=== PATIENT | female | born 1980 | race Caucasian/White ===

== ENCOUNTER 2016-10-14 14:30 | Emergency (ER) | payer MEDICARE ==
[2016-10-14] MEDS ORDERED: MOTRIN PO ONE (18:19)
--- NOTE | 2016-10-14 18:21 | Emergency Department Report ---
HPI - General Chief Complaint: Back Pain/Injury Time Seen by Provider: 10/14/16 18:04 - HPI HPI: 36-year-old female past medical history anxiety depression and history of pneumonia presents with complaint of one day of left sided costal margin/left- sided flank pain. Patient denies any fever or chills denies any productive cough denies any chest pain substernal or anterior no palpitations denies any shortness of breath, chest pain somewhat pleuritic in nature. Patient is not on any form of control history of tubal ligation ED Past Medical Hx - Past Medical History Hx Hypertension: Yes Hx Heart Attack/AMI: No Hx Congestive Heart Failure: No Hx Diabetes: No Hx Deep Vein Thrombosis: No Hx Pulmonary Embolism: No Hx Liver Disease: No Hx Renal Disease: No Hx Sickle Cell Disease: No Hx Headaches / Migraines: Yes (migraines) Hx Seizures: Yes (PIH) Hx Kidney Stones: No Hx Psychiatric Treatment: Yes (PTSD,ANXIETY, DEPRESSION) Hx Asthma: No (seasonal allergy) Hx COPD: No Hx Tuberculosis: No Hx Dementia: No Hx HIV: No Additional medical history: Preeclampsia - Surgical History Hx Coronary Stent: No Hx Pacemaker: No Hx Internal Defibrillator: No Additional Surgical History: TUBAL LIGATION - Social History Smoking Status: Never Smoker Substance Use Type: None - Medications Home Medications: Home Medications Medication Instructions Recorded Confirmed Last Taken Type Amlodipine Besylate [Norvasc] 2.5 mg PO DAILY 30 Days 10/19/14 04/18/16 07:31 Rx Aspirin [Aspirin TAB] 325 mg PO QDAY 04/13/16 04/13/16 04/12/16 History Citalopram [celeXA] 20 mg PO QDAY 04/13/16 04/18/16 04/15/16 09:00 History HYDROmorphone [Dilaudid] 2 mg PO Q6HR PRN #20 tablet 04/18/16 Unknown Rx Ibuprofen [Motrin] 800 mg PO Q8HR PRN #60 tablet 04/18/16 Unknown Rx Cyclobenzaprine [Flexeril] 10 mg PO TID PRN #15 tablet 10/14/16 Unknown Rx Ibuprofen [Motrin] 600 mg PO Q8H PRN #30 tablet 10/14/16 Unknown Rx ED Review of Systems ROS: Stated complaint: PRIMITIVO/RULE OUT PNEMONIA Other details as noted in HPI Physical Exam - Physical Exam Vital Signs: Vital Signs 10/14/16 16:09 Temperature 98.5 F Pulse Rate 79 Respiratory 18 Rate Blood Pressure 149/101 O2 Sat by Pulse 100 Oximetry General: General: Well appearing, well nourished, in no distress. Oriented x 3, normal mood and affect . Ambulating without difficulty. Skin: Good turgor, no rash, unusual bruising or prominent lesions Head: Normocephalic, atraumatic, no visible or palpable masses, depressions, or scaring. Eyes: Visual acuity intact, conjunctiva clear, sclera non-icteric, EOM intact, PERRL, fundi have normal optic discs and vessels, no exudates or hemorrhages Ears: EACs clear, TMs translucent & mobile, ossicles nl appearance, hearing intact. Nose: No external lesions, mucosa non-inflamed, septum and turbinates normal Pharynx: Mucosa non-inflamed, no tonsillar hypertrophy or exudate Neck: Supple, without lesions, bruits, or adenopathy, thyroid non-enlarged and non-tender Heart: No cardiomegaly or thrills; regular rate and rhythm, no murmur or gallop Lungs: Clear to auscultation b/l Abdomen: Bowel sounds normal, no tenderness, organomegaly, masses, or hernia Back: Spine normal without deformity or tenderness, no CVA tenderness Musculoskeletal: Normal gait and station. No misalignment, asymmetry, crepitation, defects, tenderness, masses, effusions, decreased range of motion, instability, atrophy or abnormal strength or tone in the head, neck, spine, ribs , pelvis or extremities. Neurologic: CN 2-12 normal. Sensation to pain, touch, and proprioception normal. DTRs normalin upper and lower extremities. No pathologic reflexes. ED Course Vital Signs 10/14/16 16:09 Temperature 98.5 F Pulse Rate 79 Respiratory 18 Rate Blood Pressure 149/101 O2 Sat by Pulse 100 Oximetry ED Medical Decision Making - Medical Decision Making A/P: Thoracic pain 1-PERC RULE 0 criteria No need for further workup, as <2% chance of PE. 2-chest x-ray within normal limits 3-patient experienced significant relief of discomfort with only one dose of anti-inflammatories we'll prescribe her Motrin and Flexeril for pain relief pain is likely musculoskeletal in nature, patient does not have CVA tenderness urinalysis is unremarkable . No rash on skin to suggest shingles although discomfort is unilateral and inappropriate dermatome. Patient does not have any lesions vesicles on skin or any history of shingles 4- advised patient to follow up with her primary medical doctor this week advised patient to return to the ED if she develops any shortness of breath hemoptysis or worsening pain despite use of anti-inflammatories and muscle relaxants Critical care attestation.: If time is entered above; I have spent that time in minutes in the direct care of this critically ill patient, excluding procedure time. ED Disposition Clinical Impression: Lower back pain Qualifiers: Chronicity: acute Back pain laterality: left Sciatica presence: without sciatica Qualified Code(s): M54.5 - Low back pain Disposition: DISCHARGED TO HOME OR SELFCARE Is pt being admited?: No Does the pt Need Aspirin: No Condition: Stable Instructions: Muscle Strain (ED), Musculoskeletal Pain (ED) Prescriptions: Cyclobenzaprine [Flexeril] 10 mg PO TID PRN #15 tablet PRN Reason: Muscle Spasm Ibuprofen [Motrin] 600 mg PO Q8H PRN #30 tablet PRN Reason: Pain Referrals: MADDI DUVALL MD [Staff Physician] - 3-5 Days [facility] [Outside] - 3-5 Days Forms: Accompanied Note, Work/School Release Form(ED) Time of Disposition: 20:09
[2016-10-14 18:33] LABS: Bilirubin,Urine NEG (Negative); Blood,Urine SM (Negative); Ketones,Urine NEG (Negative); Leukocyte Esterase,Urine NEG (Negative); Mucus,Urine 1+ /HPF; Nitrite,Urine NEG (Negative); Protein,Urine <15 mg/dL mg/dL (Negative); Urobilinogen,Urine < 2.0 mg/dL (<2.0)
--- NOTE | 2016-10-14 19:55 | XRay Report ---
FINAL REPORT PROCEDURE: XR CHEST ROUTINE 2V TECHNIQUE: PA and lateral chest radiographs were obtained. CPT 15225 HISTORY: left sided chest pain/costal margin pain COMPARISON: No prior studies are available for comparison. FINDINGS: Heart: Normal contour. Mediastinum/Vessels: Normal contour. Lungs/Pleural space: No infiltrate, effusion, or pneumothorax. Bony thorax: No acute osseous abnormality. Other: IMPRESSION: No pulmonary infiltrates are identified.
[2016-10-14 20:24] VITALS: BP 127/86
== END 2016-10-14 20:25 | disposition home or self-care (01) ==
LOC: ED 14:30
DX: M54.5 Low back pain (principal); I10 Essential (primary) hypertension
CPT/HCPCS: 71020; 81001; 81025; 87086; 99284

== ENCOUNTER 2016-12-21 15:05 | Emergency (ER) | payer MEDICARE ==
[2016-12-21 16:44] LABS: Basophils % (Auto) 0.4 % (0.0-1.8); Eosinophils % (Auto) 3.9 % (0.0-4.3); Hematocrit 26.5 % (30.3-42.9); Hemoglobin 8.4 gm/dl (10.1-14.3); Mean Corpuscular HGB Conc 32 % (30-34); Platelet Count 160 K/mm3 (140-440); Red Blood Count 3.89 M/mm3 (3.65-5.03); White Blood Count 5.4 K/mm3 (4.5-11.0)
[2016-12-21 16:47] LABS: Mean Corpuscular Hemoglobin 22 pg (28-32); Mean Corpuscular Volume 68 fl (79-97)
[2016-12-21 16:50] LABS: Red Cell Distribution Width 20.4 % (13.2-15.2)
[2016-12-21 16:57] LABS: Anion Gap 17 mmol/L; BUN/Creatinine Ratio 13.33; Blood Urea Nitrogen 8 mg/dL (7-17); Calcium 8.9 mg/dL (8.4-10.2); Carbon Dioxide 23 mmol/L (22-30); Chloride 106.7 mmol/L (98-107); Glucose 94 mg/dL (65-100); Potassium 3.7 mmol/L (3.6-5.0); Sodium 143 mmol/L (137-145)
--- NOTE | 2016-12-21 17:32 | Emergency Department Report ---
ED General Adult HPI - General Chief complaint: Chest Pain Stated complaint: CHEST PAIN /DISCOMFORT/MUSCLE PAIN Time Seen by Provider: 12/21/16 17:28 Source: patient, RN notes reviewed, old records reviewed Mode of arrival: Ambulatory Limitations: No Limitations - History of Present Illness Initial comments: This is a 36-year-old female. She is previously unknown to me. Her primary care doctor is Dr. Maribel Alvares. Past medical history includes hypertension, depression, anxiety, intermittent anemia. The patient presents to the ER with multiple complaints. The patient's first complaint is chest pain. The chest pain is central. It does not radiate to the back, arms or neck. There is no nausea, vomiting or diaphoresis. There is no leg pain. There is no leg swelling. No recent trips greater than 4 hours. No recent hospitalizations. No severe shortness of breath. The patient says complaint is muscular pain.. No muscular pains in the bilateral paracervical muscles, bilateral trapezii, bilateral biceps, bilateral forearms, bilateral quadriceps, bilateral lower extremities. The pain is achy. The pain has no exacerbating or relieving factors. The patient's third complaint is numbness. The numbness is in the left arm and left leg. It is intermittent. It has since resolved. There is no midline neck pain. There is no extremity weakness. There is no saddle anesthesia. There is no bladder or bowel retention or incontinence. This is painless. Has no exacerbating or relieving factors. -: Gradual Location: chest, left, right, upper extremity, lower extremity Quality: aching Improves with: other (per hpi) Worsens with: other (per hpi) Associated Symptoms: chest pain, loss of appetite - Related Data Home Medications Medication Instructions Recorded Confirmed Last Taken Aspirin [Aspirin TAB] 325 mg PO QDAY 04/13/16 04/13/16 04/12/16 Citalopram [celeXA] 20 mg PO QDAY 04/13/16 04/18/16 04/15/16 09:00 Previous Rx's Medication Instructions Recorded Last Taken Type Amlodipine Besylate [Norvasc] 2.5 mg PO DAILY 30 Days 10/19/14 04/18/16 07:31 Rx HYDROmorphone [Dilaudid] 2 mg PO Q6HR PRN #20 tablet 04/18/16 Unknown Rx Ibuprofen [Motrin] 800 mg PO Q8HR PRN #60 tablet 04/18/16 Unknown Rx Cyclobenzaprine [Flexeril] 10 mg PO TID PRN #15 tablet 10/14/16 Unknown Rx Ibuprofen [Motrin] 600 mg PO Q8H PRN #30 tablet 10/14/16 Unknown Rx Ferrous Sulfate [Feosol 325 MG tab] 325 mg PO TID #90 tablet 12/21/16 Unknown Rx Allergies Allergy/AdvReac Type Severity Reaction Status Date / Time acetaminophen [From Percocet] Allergy Vomiting Verified 10/14/16 16:12 latex Allergy Rash Verified 10/14/16 16:12 oxycodone HCl [From Percocet] Allergy Vomiting Verified 10/14/16 16:12 ED Review of Systems ROS: Stated complaint: CHEST PAIN /DISCOMFORT/MUSCLE PAIN Other details as noted in HPI Constitutional: malaise. denies: fever Eyes: denies: vision change ENT: denies: epistaxis Respiratory: see HPI Cardiovascular: chest pain Gastrointestinal: denies: abdominal pain Genitourinary: denies: dysuria Musculoskeletal: arthralgia, myalgia Skin: denies: lesions Neurological: paresthesias Psychiatric: anxiety ED Past Medical Hx - Past Medical History Hx Hypertension: Yes Hx Heart Attack/AMI: No Hx Congestive Heart Failure: No Hx Diabetes: No Hx Deep Vein Thrombosis: No Hx Pulmonary Embolism: No Hx Liver Disease: No Hx Renal Disease: No Hx Sickle Cell Disease: No Hx Headaches / Migraines: Yes (migraines) Hx Seizures: Yes (PIH) Hx Kidney Stones: No Hx Psychiatric Treatment: Yes (PTSD,ANXIETY, DEPRESSION) Hx Asthma: No (seasonal allergy) Hx COPD: No Hx Tuberculosis: No Hx Dementia: No Hx HIV: No Additional medical history: Preeclampsia - Surgical History Hx Coronary Stent: No Hx Pacemaker: No Hx Internal Defibrillator: No Additional Surgical History: TUBAL LIGATION - Social History Smoking Status: Never Smoker Substance Use Type: None - Medications Home Medications: Home Medications Medication Instructions Recorded Confirmed Last Taken Type Amlodipine Besylate [Norvasc] 2.5 mg PO DAILY 30 Days 10/19/14 04/18/16 07:31 Rx Aspirin [Aspirin TAB] 325 mg PO QDAY 04/13/16 04/13/16 04/12/16 History Citalopram [celeXA] 20 mg PO QDAY 04/13/16 04/18/16 04/15/16 09:00 History HYDROmorphone [Dilaudid] 2 mg PO Q6HR PRN #20 tablet 04/18/16 Unknown Rx Ibuprofen [Motrin] 800 mg PO Q8HR PRN #60 tablet 04/18/16 Unknown Rx Cyclobenzaprine [Flexeril] 10 mg PO TID PRN #15 tablet 10/14/16 Unknown Rx Ibuprofen [Motrin] 600 mg PO Q8H PRN #30 tablet 10/14/16 Unknown Rx Ferrous Sulfate [Feosol 325 MG tab] 325 mg PO TID #90 tablet 12/21/16 Unknown Rx ED Physical Exam - General Limitations: No Limitations General appearance: alert, in no apparent distress - Head Head exam: Present: atraumatic, normocephalic - Eye Eye exam: Present: normal appearance, EOMI. Absent: nystagmus - ENT ENT exam: Present: normal exam, normal orophraynx, mucous membranes moist, TM's normal bilaterally, normal external ear exam - Neck Neck exam: Present: normal inspection, full ROM. Absent: tenderness, meningismus - Respiratory Respiratory exam: Present: normal lung sounds bilaterally, chest wall tenderness , other (there is reproducible anterior chest wall tenderness. The breast examination is unremarkable. During the breast examination, I'm escorted by ER nurse Janice Seaman). Absent: respiratory distress, wheezes, rales, rhonchi, stridor - Cardiovascular Cardiovascular Exam: Present: regular rate, normal rhythm, normal heart sounds. Absent: bradycardia, tachycardia, irregular rhythm, systolic murmur, diastolic murmur, rubs, gallop - GI/Abdominal GI/Abdominal exam: Present: soft, normal bowel sounds. Absent: distended, tenderness, guarding, rebound, rigid, pulsatile mass - Extremities Exam Extremities exam: Present: normal inspection, full ROM, normal capillary refill. Absent: tenderness, calf tenderness - Back Exam Back exam: Present: normal inspection, full ROM. Absent: tenderness, CVA tenderness (R), CVA tenderness (L), muscle spasm, paraspinal tenderness, vertebral tenderness - Neurological Exam Neurological exam: Present: alert, oriented X3, normal gait (normal gait. Normal tandem gait. Negative Romberg examination. Normal [id number].), other (Extraocular movements intact. Tongue midline. No facial droop. Facial sensation intact to light touch in the V1, V2, V3 distribution bilaterally. 5 and 5 strength in 4 extremities.. Sensation is intact to light touch in 4 extremities.). Absent: motor sensory deficit - Psychiatric Psychiatric exam: Present: anxious - Skin Skin exam: Present: warm, dry, intact, normal color. Absent: rash ED Course Vital Signs 12/21/16 12/21/16 12/21/16 15:23 18:34 19:51 Temperature 98.2 F 98.1 F Pulse Rate 81 68 78 Respiratory 16 16 16 Rate Blood Pressure 142/97 Blood Pressure 159/88 139/78 [Right] O2 Sat by Pulse 100 98 99 Oximetry - Reevaluation(s) Reevaluation #1: 12/21/16 19:35 Differential diagnosis: Cervical radiculopathy, acute coronary syndrome, anxiety , fibromyalgia, pneumonia Assessment and plan: 36-year-old female with multiple complaints. Patient has a GCS of 15, with an NIH score of 0. Her neuro examination is unremarkable. Noncontrast CT scan of the brain is negative. Patient has a low ABCD 2 score. Very little risk of true TIA. From a cardiac standpoint, the patient is low risk by JUANIS score, low risk by heart score, low risk by well's criteria, and she is perk negative. EKG was morphologically within normal limits 2, troponins were within normal limits 2, x-ray of the chest was within normal limits. Patient is suitable to follow up with outpatient primary care doctor, family preservation caseworker and neurologist for her multiple complaints. Return precautions are reviewed. Reevaluation #2: 12/21/16 19:41 think aortic disease/aortic dissection is very unlikely, the chest x-ray is within normal limits, she is not especially hypertensive, the patient has normal pulses in 4 extremities. There is no pulsatile abdominal mass. ED Medical Decision Making - Lab Data Result diagrams: 12/21/16 15:41 12/21/16 15:41 Vital Signs 12/21/16 12/21/16 15:23 18:34 Temperature 98.2 F Pulse Rate 81 68 Respiratory 16 16 Rate Blood Pressure 142/97 Blood Pressure 159/88 [Right] O2 Sat by Pulse 100 98 Oximetry Lab Results 12/21/16 12/21/16 12/21/16 Range/Units 15:41 15:41 17:44 WBC 5.4 (4.5-11.0) K/mm3 RBC 3.89 (3.65-5.03) M/mm3 Hgb 8.4 L (10.1-14.3) gm/dl Hct 26.5 L (30.3-42.9) % MCV 68 L (79-97) fl MCH 22 L (28-32) pg MCHC 32 (30-34) % RDW 20.4 H (13.2-15.2) % Plt Count 160 (140-440) K/mm3 Lymph % (Auto) 29.2 (13.4-35.0) % [place] % (Auto) 5.8 (0.0-7.3) % Eos % (Auto) 3.9 (0.0-4.3) % Baso % (Auto) 0.4 (0.0-1.8) % Lymph # 1.6 (1.2-5.4) K/mm3 [place] # 0.3 (0.0-0.8) K/mm3 Eos # 0.2 (0.0-0.4) K/mm3 Baso # 0.0 (0.0-0.1) K/mm3 Seg Neutrophils % 60.7 (40.0-70.0) % Seg Neutrophils # 3.3 (1.8-7.7) K/mm3 PT 13.9 (12.2-14.9) Sec. INR 1.08 (0.87-1.13) Sodium 143 (137-145) mmol/L Potassium 3.7 (3.6-5.0) mmol/L Chloride 106.7 (98-107) mmol/L Carbon Dioxide 23 (22-30) mmol/L Anion Gap 17 mmol/L BUN 8 (7-17) mg/dL Creatinine 0.6 L (0.7-1.2) mg/dL Estimated GFR > 60 ml/min BUN/Creatinine Ratio 13.33 % Glucose 94 (65-100) mg/dL Calcium 8.9 (8.4-10.2) mg/dL Troponin T < 0.010 (0.00-0.029) ng/mL Urine HCG, Qual (Negative) 12/21/16 12/21/16 Range/Units 17:45 18:33 WBC (4.5-11.0) K/mm3 RBC (3.65-5.03) M/mm3 Hgb (10.1-14.3) gm/dl Hct (30.3-42.9) % MCV (79-97) fl MCH (28-32) pg MCHC (30-34) % RDW (13.2-15.2) % Plt Count (140-440) K/mm3 Lymph % (Auto) (13.4-35.0) % [place] % (Auto) (0.0-7.3) % Eos % (Auto) (0.0-4.3) % Baso % (Auto) (0.0-1.8) % Lymph # (1.2-5.4) K/mm3 [place] # (0.0-0.8) K/mm3 Eos # (0.0-0.4) K/mm3 Baso # (0.0-0.1) K/mm3 Seg Neutrophils % (40.0-70.0) % Seg Neutrophils # (1.8-7.7) K/mm3 PT (12.2-14.9) Sec. INR (0.87-1.13) Sodium (137-145) mmol/L Potassium (3.6-5.0) mmol/L Chloride (98-107) mmol/L Carbon Dioxide (22-30) mmol/L Anion Gap mmol/L BUN (7-17) mg/dL Creatinine (0.7-1.2) mg/dL Estimated GFR ml/min BUN/Creatinine Ratio % Glucose (65-100) mg/dL Calcium (8.4-10.2) mg/dL Troponin T < 0.010 (0.00-0.029) ng/mL Urine HCG, Qual Negative (Negative) Anemia is appreciated, the patient physically has anemia, she is able to ambulate without desaturation, has a hemoglobin of greater than 8, she can follow up with the primary care doctor for this. - EKG Data -: EKG Interpreted by Me EKG shows normal: sinus rhythm, axis, intervals, QRS complexes, ST-T waves Rate: normal - EKG Data When compared to previous EKG there are: no significant change Interpretation: normal EKG 12/21/16 19:37 EKG #1 demonstrates normal sinus, 76 bpm, normal intervals, normal axis, not morphologically consistent with STEMI. EKG #2 demonstrates normal sinus, 64 bpm, normal intervals, normal axis, not morphologically consistent with STEMI. - Radiology Data Radiology results: report reviewed, image reviewed Noncontrast CT scan of the brain is negative. X-ray of the chest is negative. Critical care attestation.: If time is entered above; I have spent that time in minutes in the direct care of this critically ill patient, excluding procedure time. ED Disposition Clinical Impression: Chest pain, Numbness, Anemia Disposition: DISCHARGED TO HOME OR SELFCARE Is pt being admited?: No Does the pt Need Aspirin: No Condition: Stable Instructions: Chest Pain (ED) Additional Instructions: Laboratory studies indicated mild anemia. Take the iron supplementation as directed. Please note that the iron supplementation will change the color of the stools to black. I recommend that you follow up with either of the listed charge master specialist within the next 3-5 days. Cardiology specialists including Dr. Lunsford and Dr. Weaver In addition, I recommended you follow-up with a listed neurology specialist within the next 2 weeks. Neurology specialists including Dr. Geller, and Dr. Donald. Please return to the ER right away with fevers or chills, chest pain or shortness of breath, intractable nausea or vomiting, inability to tolerate liquid feeds, new, worsening or different symptoms. Prescriptions: Ferrous Sulfate [Feosol 325 MG tab] 325 mg PO TID #90 tablet Referrals: MARIBEL ALVARES DO [Primary Care Provider] - 3-5 Days FLORIN LUNSFORD MD [Staff Physician] - 3-5 Days CARRI RAMSEY MD [Staff Physician] - 3-5 Days LASHON DONALD MD [Staff Physician] - 3-5 Days ARA GELLER MD [Staff Physician] - 3-5 Days
[2016-12-21 18:11] LABS: INR 1.08 (0.87-1.13)
--- NOTE | 2016-12-21 18:55 | Cat Scan Report ---
FINAL REPORT PROCEDURE: CT HEAD/BRAIN WO CON TECHNIQUE: Computerized tomography of the head was performed without contrast material. HISTORY: RESOLVED NUMBNESS COMPARISON: Prior CT scan of the brain 03/17/2015 FINDINGS: Brain: Brain density appears normal. No evidence of intracranial hemorrhage. No parenchymal hemorrhage, mass lesions or mass effect are seen. No abnormal extraxial fluid collects or masses are seen. Ventricles: Ventricles are normal size and are midline. Bone Windows: No evidence of skull fracture. Paranasal sinuses: Clear Mastoid air cells: Clear IMPRESSION: Negative exam
[2016-12-21] MEDS ORDERED: TORADOL IM ONE (19:32)
[2016-12-21 19:52] VITALS: BP 139/78
--- NOTE | 2016-12-22 10:19 | XRay Report ---
CHEST TWO VIEWS: 12/21/16 15:05:00 CLINICAL: Chest pain. COMPARISON: 10/14/16 FINDINGS: Normal heart and pulmonary vasculature. The lungs are hyperexpanded but clear.The bones and soft tissues are unremarkable. IMPRESSION: Pulmonary hyperinflation but otherwise normal.
== END 2016-12-21 19:56 | disposition home or self-care (01) ==
LOC: ED 15:05
DX: R07.9 Chest pain, unspecified (principal); R20.0 Anesthesia of skin; D64.9 Anemia, unspecified; I10 Essential (primary) hypertension
CPT/HCPCS: 36415; 70450; 71020; 80048; 81025; 84484; 85025; 85610; 93005; 93010; 96372; 99285; J1885

== ENCOUNTER 2017-05-13 00:38 | Emergency (ER) | payer MEDICARE ==
[2017-05-13 01:14] VITALS: BP 162/94
[2017-05-13 01:44] LABS: Basophils % (Auto) 0.6 % (0.0-1.8); Eosinophils % (Auto) 4.6 % (0.0-4.3); Hematocrit 30.7 % (30.3-42.9); Hemoglobin 9.8 gm/dl (10.1-14.3); Mean Corpuscular HGB Conc 32 % (30-34); Mean Corpuscular Volume 75 fl (79-97); Platelet Count 155 K/mm3 (140-440); Red Blood Count 4.12 M/mm3 (3.65-5.03); White Blood Count 6.2 K/mm3 (4.5-11.0)
[2017-05-13 01:50] LABS: Mean Corpuscular Hemoglobin 24 pg (28-32)
[2017-05-13 02:04] LABS: Anion Gap 18 mmol/L; Blood Urea Nitrogen 9 mg/dL (7-17); Carbon Dioxide 23 mmol/L (22-30); Chloride 102.2 mmol/L (98-107); Glucose 84 mg/dL (65-100); Sodium 139 mmol/L (137-145)
== END 2017-05-13 04:25 | disposition left against medical advice (07) ==
LOC: ED 00:38
DX: R51 Headache (principal); R07.9 Chest pain, unspecified; Z53.21 Procedure and treatment not carried out due to patient leaving prior to being seen by health care provider
CPT/HCPCS: 36415; 80048; 81025; 84484; 85025; 93005; 93010